=== PATIENT | female | born 1975 | race Caucasian/White ===

== ENCOUNTER 2017-06-16 07:25 | Emergency (ER) | payer OTHER ==
[2017-06-16 07:29] VITALS: BP 106/52; PULSE 84; RESP 14; TEMP 98.2; O2SAT 98
[2017-06-16] MEDS ORDERED: IBUP1TAB7 PO (07:33)
[2017-06-16] MEDS ORDERED: CYCL10TA PO (07:33)
[2017-06-16] MEDS ORDERED: NORC5TAB PO (07:33)
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
[2017-06-16] MEDS ORDERED: NAPR500T2 PO (12:04)
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
== END 2017-06-16 12:33 | disposition home or self-care (01) ==
LOC: NEPC 07:25
DX: S83.91XA Sprain of unspecified site of right knee, initial encounter (principal); M25.571 Pain in right ankle and joints of right foot; V49.40XA Driver injured in collision with unspecified motor vehicles in traffic accident, initial encounter
CPT/HCPCS: 73564; 73610; 99284